=== PATIENT | female | born 1940 | race Caucasian/White ===

== ENCOUNTER 2017-12-23 16:00 | Inpatient (IN) | payer MEDICARE, OTHER ==
[~2017-12-23] VITALS: Ht 170.2 cm; Wt 66.0 kg
[~2017-12-23 16:00] MED LIST: diatr meglu/diatrizoate 30ml oral sol.-(3 dose) bottle PO SCH
[2017-12-23] MEDS ORDERED: normal saline 1000ML IV soln IVB ONE (16:35)
[2017-12-23 16:56] LABS: BASOPHILS % (AUTO) 0.3 % (0-1); EOSINOPHILS % (AUTO) 0.6 % (0-6); HEMATOCRIT 27.8 % (35.0-45.0); HEMOGLOBIN 9.6 g/dl (12.0-16.0); LYMPHOCYTES # (AUTO) 1.1 X10'3 (1.1-4.8); LYMPHOCYTES % (AUTO) 19.8 % (21-51); MEAN CORPUSCULAR HEMOGLOBIN 34.4 PG (27.0-31.0); MEAN CORPUSCULAR HGB CONC 34.4 % (33.0-36.5); MEAN CORPUSCULAR VOLUME 99.9 FL (78-98); MEAN PLATELET VOLUME 7.7 FL (7.4-10.4); MONOCYTES # (AUTO) 0.4 X10'3 (0-0.9); MONOCYTES % (AUTO) 6.6 % (2-12); NEUTROPHILS % (AUTO) 72.7 % (42-75); PLATELET COUNT 172 X10'3 (140-440); RED BLOOD COUNT 2.78 X10'6 (4.20-5.60); WHITE BLOOD COUNT 5.4 X10'3 (4.5-11.0)
[2017-12-23 17:13] LABS: PROTHROMBIN TIME 17.3 SECONDS (9.0-12.0)
[2017-12-23 17:14] LABS: INR 1.7 INR; PARTIAL THROMBOPLASTIN TIME 29 SECONDS (22-32)
[2017-12-23 17:15] LABS: ALANINE AMINOTRANSFERASE 40 U/L (12-78); ALBUMIN 2.2 G/DL (3.4-5.0); ALKALINE PHOSPHATASE 140 IU/L (46-116); ANION GAP 11 (8-16); CALCIUM 7.6 MG/DL (8.5-10.1); CHLORIDE 107 MMOL/L (99-107); CREATININE 0.93 MG/DL (0.40-0.90); SODIUM 144 MMOL/L (135-145); TOTAL CARBON DIOXIDE 26.2 MMOL/L (24-32); TROPONIN I 0.06 NG/ML (0.0-0.05); eGFR 58 ML/MIN
[2017-12-23 17:16] LABS: ANISOCYTOSIS 2+; PLATELET ESTIMATE NORMAL; TARGET CELLS 1+
[2017-12-23 17:20] LABS: ALBUMIN/GLOBULIN RATIO 0.7 (1.1-1.5); ASPARTATE AMINO TRANSFERASE 30 U/L (10-37); BILIRUBIN,TOTAL 0.9 MG/DL (0.1-1.0); BLOOD UREA NITROGEN 9 MG/DL (7-18); BUN/CREATININE RATIO 9.7 (6.6-38.0); GLUCOSE 86 MG/DL (70-104); TOTAL PROTEIN 5.5 G/DL (6.4-8.2)
[2017-12-23 17:30] LABS: ETHANOL < 0.010 GM/DL (0.0-0.010)
[2017-12-23 17:31] LABS: POTASSIUM 1.7 MMOL/L (3.5-5.1)
[2017-12-23] MEDS ORDERED: potassium Cl 20 mEq SR tablet PO ONE (17:35)
[2017-12-23] MEDS ORDERED: potassium Cl 40 mEq/NS 500ml IV ONE (17:35)
[2017-12-23] MEDS ORDERED: normal saline 1000ml 1,000 ML IV ONE (17:35)
[2017-12-23] MEDS ORDERED: Potassium Cl 40 MEQ in NS 500 ML IV ONE (17:40)
[2017-12-23] MEDS ORDERED: magnesium 1gm/100ml D5W IVPB 100 ML IV PRN (17:50)
[2017-12-23] MEDS ORDERED: mag hydrox/Alum hydrox/simeth 30ml oral suspension PO PRN (17:50)
[2017-12-23] MEDS ORDERED: acetaminophen 325mg tablet PO PRN (17:50)
[2017-12-23] MEDS ORDERED: potassium Cl 20 mEq SR tablet PO PRN (17:50)
[2017-12-23] MEDS ORDERED: potassium Cl 40MEQ/NS 500ml 500 ML IV PRN (17:50)
[2017-12-23] MEDS ORDERED: ondansetron/PF 4mg/2ml inj IV PRN (17:50)
[2017-12-23] MEDS ORDERED: magnesium 4gm in 100ml NS 100 ML IV PRN (17:50)
[2017-12-23] MEDS ORDERED: magnesium hydroxide 30ml (MOM) UD suspension PO PRN (17:50)
[2017-12-23 18:00] LABS: MAGNESIUM 1.6 MG/DL (1.5-2.4)
[2017-12-23 18:03] LABS: PHOSPHORUS 1.5 MG/DL (2.3-4.5)
[2017-12-23] MEDS ORDERED: nicotine 14mg patch - 24hr TD ONE (18:20)
[2017-12-23] MEDS ORDERED: diatr meglu/diatrizoate 30ml oral sol.-(3 dose) bottle PO ONE (18:30)
[2017-12-23] MEDS ORDERED: SIMV40TA4 PO (18:50)
[2017-12-23] MEDS ORDERED: PER5325T PO (18:50)
[2017-12-23] MEDS ORDERED: LISI-604 PO (18:50)
[2017-12-23] MEDS ORDERED: TRAZ-218 PO (18:50)
[2017-12-23] MEDS ORDERED: TIZA4TAB11 PO (18:50)
[2017-12-23] MEDS ORDERED: LORA10TA7 PO (18:50)
[2017-12-23] MEDS ORDERED: IBUP-1984 PO (18:50)
[2017-12-23] MEDS ORDERED: MULT-1172 (18:50)
[2017-12-23 19:32] LABS: CLARITY,URINE SLIGHTLY CLOUDY (Clear); COLOR,URINE YELLOW (Yellow); GLUCOSE, URINE NEGATIVE (Neg); KETONES,URINE NEGATIVE (Neg); LEUKOCYTE ESTERASE ,URINE SMALL (Neg); NITRITES, URINE NEGATIVE (Neg); OCCULT BLOOD,URINE LARGE (Neg); PROTEIN,URINE NEGATIVE (Neg); UROBILINOGEN,URINE 0.2 E.U/dL (0.2-1.0)
[2017-12-23 19:41] LABS: UA COLLECTION TYPE CLN CATCH MIDSTREAM
[2017-12-23 19:47] LABS: BACTERIA,URINE 1+ /HPF (Neg); RBC,URINE 20-50 /HPF (0-2); SQUAMOUS EPITHELIAL CELL,UR MODERATE /LPF (FEW); WBC,URINE 0-4 /HPF (0-4)
[2017-12-23 20:15] VITALS: BP 132/86
[2017-12-23 20:32] LABS: URINE AMPHETAMINE SCREEN NEGATIVE (Neg); URINE BARBITUATE SCREEN NEGATIVE (Neg); URINE BENZODIAZEPINES SCREEN NEGATIVE (Neg); URINE CANNABINOID SCREEN NEGATIVE (Neg); URINE COCAINE SCREEN NEGATIVE (Neg); URINE METHADONE SCREEN NEGATIVE (Neg); URINE OPIATE SCREEN NEGATIVE (Neg); URINE PHENCYCLIDINE SCREEN NEGATIVE (Neg)
[2017-12-23 22:00] VITALS: BP 132/68
[2017-12-23 22:51] LABS: MAGNESIUM 1.6 MG/DL (1.5-2.4)
[2017-12-23 22:53] LABS: POTASSIUM 2.5 MMOL/L (3.5-5.1)
[2017-12-23] MEDS: potassium Cl 40MEQ/NS 500ml 500 ML IV PRN (23:09)
[2017-12-23] MEDS: diatr meglu/diatrizoate 30ml oral sol.-(3 dose) bottle PO SCH (23:40)
[2017-12-24] MEDS: HYDROcodone/acetaminophen 5mg/325mg tablet PO PRN ×3 (00:51→11:30)
[2017-12-24 02:00] VITALS: BP 120/62
[2017-12-24] MEDS: potassium Cl 40MEQ/NS 500ml 500 ML IV PRN (04:02)
[2017-12-24 06:00] VITALS: BP 134/77
[2017-12-24 07:31] LABS: BASOPHILS % (AUTO) 0.3 % (0-1); EOSINOPHILS # (AUTO) 0.1 X10'3 (0-0.9); EOSINOPHILS % (AUTO) 1.6 % (0-6); HEMATOCRIT 31.5 % (35.0-45.0); HEMOGLOBIN 10.6 g/dl (12.0-16.0); LYMPHOCYTES # (AUTO) 1.2 X10'3 (1.1-4.8); LYMPHOCYTES % (AUTO) 15.5 % (21-51); MEAN CORPUSCULAR HEMOGLOBIN 34.5 PG (27.0-31.0); MEAN CORPUSCULAR HGB CONC 33.8 % (33.0-36.5); MEAN CORPUSCULAR VOLUME 102.2 FL (78-98); MONOCYTES # (AUTO) 0.4 X10'3 (0-0.9); MONOCYTES % (AUTO) 4.8 % (2-12); NEUTROPHILS # (AUTO) 5.9 X10'3 (1.8-7.7); NEUTROPHILS % (AUTO) 77.8 % (42-75); PLATELET COUNT 176 X10'3 (140-440); RED BLOOD COUNT 3.08 X10'6 (4.20-5.60); RED CELL DISTRIBUTION WIDTH 19.8 % (11.5-14.5); WHITE BLOOD COUNT 7.5 X10'3 (4.5-11.0)
[2017-12-24] MEDS: pantoprazole 40mg Tablet.DR PO SCH (07:33)
[2017-12-24] MEDS: enoxaparin 40mg/0.4ml syringe SUBCUT SCH (07:34)
[2017-12-24] MEDS: diatr meglu/diatrizoate 30ml oral sol.-(3 dose) bottle PO SCH ×2 (07:45→09:33)
[2017-12-24 07:55] LABS: ALANINE AMINOTRANSFERASE 45 U/L (12-78); ALBUMIN 2.4 G/DL (3.4-5.0); ALKALINE PHOSPHATASE 156 IU/L (46-116); ANION GAP 11 (8-16); CALCIUM 7.3 MG/DL (8.5-10.1); CHLORIDE 113 MMOL/L (99-107); CREATININE 0.86 MG/DL (0.40-0.90); MAGNESIUM 1.6 MG/DL (1.5-2.4); POTASSIUM 3.2 MMOL/L (3.5-5.1); SODIUM 146 MMOL/L (135-145); TOTAL CARBON DIOXIDE 22.3 MMOL/L (24-32); eGFR 64 ML/MIN
[2017-12-24 07:57] LABS: ALBUMIN/GLOBULIN RATIO 0.6 (1.1-1.5); ASPARTATE AMINO TRANSFERASE 37 U/L (10-37); BLOOD UREA NITROGEN 8 MG/DL (7-18); BUN/CREATININE RATIO 9.3 (6.6-38.0); GLUCOSE 64 MG/DL (70-104); TOTAL PROTEIN 6.2 G/DL (6.4-8.2)
[2017-12-24] MEDS: K and/or MAG REPLACEMENT MC SCH (08:00)
[2017-12-24] MEDS ORDERED: potassium phosphate inj 30 MMOL in normal saline 500ml IV soln 490 ML IV ONE (09:10)
[2017-12-24] MEDS ORDERED: iohexol 300mg/ml 100ml inj. ONE (09:28)
[2017-12-24 09:44] LABS: PLATELET ESTIMATE NORMAL
[2017-12-24 09:45] LABS: ANISOCYTOSIS 2+
[2017-12-24 09:46] LABS: TARGET CELLS 1+
[2017-12-24 11:00] VITALS: BP 138/72
[2017-12-24] MEDS ORDERED: oxyCODONE/APAP 5-325mg tablet PO PRN (13:10)
[2017-12-24] MEDS: Neutra Phos packet PO SCH ×2 (14:12→21:33)
[2017-12-24 15:00] VITALS: BP 130/80
[2017-12-24] MEDS: ibuprofen tablet 400 MG TABLET PO PRN (16:01)
[2017-12-24] MEDS: traZODone 50mg tablet PO SCH (17:51)
[2017-12-24 18:00] VITALS: BP 133/84
[2017-12-24] MEDS: NUT.TX.IMPAIRED DIGEST FXN (Ensure Clear) 237 ML PO SCH (18:00)
[2017-12-24] MEDS ORDERED: cyclobenzaprine 10mg tablet PO SCH (21:00)
[2017-12-24] MEDS: atorvastatin 20mg tablet PO SCH (21:32)
[2017-12-24 22:00] VITALS: BP 114/58
[2017-12-25 02:00] VITALS: BP 112/66
[2017-12-25 06:29] LABS: BASOPHILS % (AUTO) 0.3 % (0-1); EOSINOPHILS # (AUTO) 0.1 X10'3 (0-0.9); EOSINOPHILS % (AUTO) 1.9 % (0-6); HEMATOCRIT 27.1 % (35.0-45.0); HEMOGLOBIN 9.2 g/dl (12.0-16.0); LYMPHOCYTES # (AUTO) 1.7 X10'3 (1.1-4.8); LYMPHOCYTES % (AUTO) 32.2 % (21-51); MEAN CORPUSCULAR VOLUME 103.1 FL (78-98); MEAN PLATELET VOLUME 8.2 FL (7.4-10.4); MONOCYTES # (AUTO) 0.3 X10'3 (0-0.9); MONOCYTES % (AUTO) 5.1 % (2-12); NEUTROPHILS # (AUTO) 3.2 X10'3 (1.8-7.7); NEUTROPHILS % (AUTO) 60.5 % (42-75); PLATELET COUNT 146 X10'3 (140-440); RED BLOOD COUNT 2.63 X10'6 (4.20-5.60); RED CELL DISTRIBUTION WIDTH 20.3 % (11.5-14.5); WHITE BLOOD COUNT 5.2 X10'3 (4.5-11.0)
[2017-12-25 06:35] LABS: ALANINE AMINOTRANSFERASE 38 U/L (12-78); ALBUMIN 2.1 G/DL (3.4-5.0); ALKALINE PHOSPHATASE 137 IU/L (46-116); ANION GAP 10 (8-16); CHLORIDE 109 MMOL/L (99-107); CREATININE 0.89 MG/DL (0.40-0.90); MAGNESIUM 1.4 MG/DL (1.5-2.4); SODIUM 141 MMOL/L (135-145); TOTAL CARBON DIOXIDE 21.9 MMOL/L (24-32); eGFR 61 ML/MIN
[2017-12-25 07:00] VITALS: BP 103/63
[2017-12-25 07:17] LABS: ALBUMIN/GLOBULIN RATIO 0.6 (1.1-1.5); ASPARTATE AMINO TRANSFERASE 28 U/L (10-37); BILIRUBIN,TOTAL 0.6 MG/DL (0.1-1.0); BLOOD UREA NITROGEN 6 MG/DL (7-18); BUN/CREATININE RATIO 6.7 (6.6-38.0); GLUCOSE 93 MG/DL (70-104); PHOSPHORUS 1.7 MG/DL (2.3-4.5); TOTAL PROTEIN 5.4 G/DL (6.4-8.2)
[2017-12-25 07:20] LABS: POTASSIUM 2.5 MMOL/L (3.5-5.1)
[2017-12-25] MEDS: pantoprazole 40mg Tablet.DR PO SCH (07:49)
[2017-12-25] MEDS: Neutra Phos packet PO SCH ×3 (07:50→20:05)
[2017-12-25] MEDS: enoxaparin 40mg/0.4ml syringe SUBCUT SCH (07:51)
[2017-12-25] MEDS: potassium Cl 40MEQ/NS 500ml 500 ML IV PRN (07:52)
[2017-12-25] MEDS: lisinopril 10 MG tablet PO SCH (07:56)
[2017-12-25] MEDS: traZODone 50mg tablet PO SCH (08:00)
[2017-12-25] MEDS: NUT.TX.IMPAIRED DIGEST FXN (Ensure Clear) 237 ML PO SCH ×3 (08:00→18:34)
[2017-12-25] MEDS: K and/or MAG REPLACEMENT MC SCH (08:00)
[2017-12-25 11:00] VITALS: BP 117/70
[2017-12-25] MEDS: magnesium Cl slow-release 64mg tablet PO PRN (11:54)
[2017-12-25 15:00] VITALS: BP 116/68
[2017-12-25 18:00] VITALS: BP 126/77
[2017-12-25] MEDS: levoTHYROXINE 75mcg tablet PO SCH (18:28)
[2017-12-25] MEDS: ibuprofen tablet 400 MG TABLET PO PRN (18:28)
[2017-12-25] MEDS: NUTRITIONAL SUPPLEMENT 113 GM PO SCH (18:34)
[2017-12-25] MEDS: atorvastatin 20mg tablet PO SCH (20:05)
[2017-12-25] MEDS: lactulose 20gm/30ml cup PO SCH (20:07)
[2017-12-25] MEDS ORDERED: traZODone 50mg tablet PO PRN (21:00)
[2017-12-25 22:00] VITALS: BP 121/79
[2017-12-26 00:34] LABS: ALANINE AMINOTRANSFERASE 36 U/L (12-78); ALBUMIN 2.1 G/DL (3.4-5.0); ALKALINE PHOSPHATASE 134 IU/L (46-116); ANION GAP 11 (8-16); CHLORIDE 111 MMOL/L (99-107); CREATININE 0.83 MG/DL (0.40-0.90); MAGNESIUM 1.3 MG/DL (1.5-2.4); POTASSIUM 3.2 MMOL/L (3.5-5.1); SODIUM 143 MMOL/L (135-145); TOTAL CARBON DIOXIDE 21.2 MMOL/L (24-32); eGFR 66 ML/MIN
[2017-12-26 00:37] LABS: ALBUMIN/GLOBULIN RATIO 0.6 (1.1-1.5); BILIRUBIN,TOTAL 0.7 MG/DL (0.1-1.0); TOTAL PROTEIN 5.4 G/DL (6.4-8.2)
[2017-12-26 00:49] LABS: ASPARTATE AMINO TRANSFERASE 34 U/L (10-37)
[2017-12-26 00:50] LABS: BLOOD UREA NITROGEN 3 MG/DL (7-18); BUN/CREATININE RATIO 3.6 (6.6-38.0); GLUCOSE 90 MG/DL (70-104)
[2017-12-26 02:00] VITALS: BP 128/78
[2017-12-26] MEDS: potassium Cl 20 mEq SR tablet PO PRN ×2 (02:07→07:30)
[2017-12-26 06:12] LABS: BASOPHILS % (AUTO) 0.3 % (0-1); EOSINOPHILS # (AUTO) 0.1 X10'3 (0-0.9); EOSINOPHILS % (AUTO) 2.6 % (0-6); HEMATOCRIT 27.9 % (35.0-45.0); HEMOGLOBIN 9.5 g/dl (12.0-16.0); LYMPHOCYTES # (AUTO) 1.3 X10'3 (1.1-4.8); LYMPHOCYTES % (AUTO) 27.1 % (21-51); MEAN CORPUSCULAR HGB CONC 34.2 % (33.0-36.5); MEAN CORPUSCULAR VOLUME 102.2 FL (78-98); MEAN PLATELET VOLUME 8.1 FL (7.4-10.4); MONOCYTES # (AUTO) 0.3 X10'3 (0-0.9); MONOCYTES % (AUTO) 6.3 % (2-12); NEUTROPHILS % (AUTO) 63.7 % (42-75); PLATELET COUNT 140 X10'3 (140-440); RED BLOOD COUNT 2.73 X10'6 (4.20-5.60); RED CELL DISTRIBUTION WIDTH 20.1 % (11.5-14.5); WHITE BLOOD COUNT 4.7 X10'3 (4.5-11.0)
[2017-12-26 07:00] VITALS: BP 128/80
[2017-12-26] MEDS: lactulose 20gm/30ml cup PO SCH ×3 (07:29→21:32)
[2017-12-26] MEDS: pantoprazole 40mg Tablet.DR PO SCH (07:30)
[2017-12-26] MEDS: levoTHYROXINE 75mcg tablet PO SCH (07:30)
[2017-12-26] MEDS: lisinopril 10 MG tablet PO SCH (07:30)
[2017-12-26] MEDS: Neutra Phos packet PO SCH (07:30)
[2017-12-26] MEDS: magnesium Cl slow-release 64mg tablet PO PRN (07:30)
[2017-12-26] MEDS: enoxaparin 40mg/0.4ml syringe SUBCUT SCH (07:31)
[2017-12-26] MEDS: NUT.TX.IMPAIRED DIGEST FXN (Ensure Clear) 237 ML PO SCH ×3 (08:00→18:00)
[2017-12-26] MEDS: K and/or MAG REPLACEMENT MC SCH (08:00)
[2017-12-26] MEDS: NUTRITIONAL SUPPLEMENT 113 GM PO SCH ×3 (08:00→18:00)
[2017-12-26 08:10] LABS: ANISOCYTOSIS 2+; PLATELET ESTIMATE DECREASED
[2017-12-26 08:11] LABS: MICROCYTOSIS 1+; SPHEROCYTES 1+
[2017-12-26 11:00] VITALS: BP 133/77
[2017-12-26] MEDS: nicotine 14mg patch - 24hr TD SCH (12:59)
[2017-12-26] MEDS: ibuprofen tablet 400 MG TABLET PO PRN (12:59)
[2017-12-26] MEDS: CefTRIAXone/D5W-Rocephin 1gm 50 ML IV SCH (12:59)
[2017-12-26] MEDS: Potassium Cl inj 20 MEQ in normal saline 1000ml 990 ML IV SCH ×2 (13:00→21:30)
[2017-12-26 15:00] VITALS: BP 145/89
[2017-12-26] MEDS: magnesium oxide 400mg tablet PO SCH (15:59)
[2017-12-26 18:00] VITALS: BP 134/77
[2017-12-26] MEDS: atorvastatin 20mg tablet PO SCH (21:33)
[2017-12-26 23:00] VITALS: BP 125/78
[2017-12-27] VITALS (8 sets, daily range): BP systolic 91–137; BP diastolic 55–95
[2017-12-27] MEDS: magnesium oxide 400mg tablet PO SCH ×3 (00:41→17:59)
[2017-12-27] MEDS: Potassium Cl inj 20 MEQ in normal saline 1000ml 990 ML IV SCH ×2 (04:32→17:59)
[2017-12-27 05:04] LABS: BASOPHILS % (AUTO) 0.2 % (0-1); EOSINOPHILS # (AUTO) 0.2 X10'3 (0-0.9); HEMATOCRIT 32.7 % (35.0-45.0); HEMOGLOBIN 10.9 g/dl (12.0-16.0); MEAN CORPUSCULAR HEMOGLOBIN 34.4 PG (27.0-31.0); MEAN CORPUSCULAR HGB CONC 33.4 % (33.0-36.5); MEAN CORPUSCULAR VOLUME 102.9 FL (78-98); MEAN PLATELET VOLUME 8.2 FL (7.4-10.4); MONOCYTES # (AUTO) 0.3 X10'3 (0-0.9); MONOCYTES % (AUTO) 5.4 % (2-12); NEUTROPHILS # (AUTO) 4.2 X10'3 (1.8-7.7); NEUTROPHILS % (AUTO) 73.4 % (42-75); PLATELET COUNT 151 X10'3 (140-440); RED BLOOD COUNT 3.18 X10'6 (4.20-5.60); RED CELL DISTRIBUTION WIDTH 20.9 % (11.5-14.5); WHITE BLOOD COUNT 5.7 X10'3 (4.5-11.0)
[2017-12-27 05:31] LABS: ALANINE AMINOTRANSFERASE 50 U/L (12-78); ALBUMIN 2.1 G/DL (3.4-5.0); ALKALINE PHOSPHATASE 150 IU/L (46-116); ANION GAP 11 (8-16); CHLORIDE 113 MMOL/L (99-107); CREATININE 0.78 MG/DL (0.40-0.90); MAGNESIUM 1.4 MG/DL (1.5-2.4); SODIUM 145 MMOL/L (135-145); TOTAL CARBON DIOXIDE 21.1 MMOL/L (24-32); eGFR 71 ML/MIN
[2017-12-27 05:35] LABS: ALBUMIN/GLOBULIN RATIO 0.6 (1.1-1.5); ASPARTATE AMINO TRANSFERASE 54 U/L (10-37); BILIRUBIN,TOTAL 0.5 MG/DL (0.1-1.0); BLOOD UREA NITROGEN 3 MG/DL (7-18); BUN/CREATININE RATIO 3.8 (6.6-38.0); GLUCOSE 92 MG/DL (70-104); PHOSPHORUS 1.4 MG/DL (2.3-4.5); TOTAL PROTEIN 5.8 G/DL (6.4-8.2)
[2017-12-27 06:25] LABS: POTASSIUM 2.9 MMOL/L (3.5-5.1)
[2017-12-27 06:30] LABS: ANISOCYTOSIS 3+; PLATELET ESTIMATE NORMAL; SCHISTOCYTES FEW; TARGET CELLS FEW
[2017-12-27] MEDS: NUT.TX.IMPAIRED DIGEST FXN (Ensure Clear) 237 ML PO SCH ×3 (08:00→18:04)
[2017-12-27] MEDS: K and/or MAG REPLACEMENT MC SCH (08:00)
[2017-12-27] MEDS: NUTRITIONAL SUPPLEMENT 113 GM PO SCH ×3 (08:00→18:00)
[2017-12-27] MEDS: lactulose 20gm/30ml cup PO SCH ×4 (08:00→20:06)
[2017-12-27] MEDS: enoxaparin 40mg/0.4ml syringe SUBCUT SCH (08:27)
[2017-12-27] MEDS: lisinopril 10 MG tablet PO SCH (08:28)
[2017-12-27] MEDS: CefTRIAXone/D5W-Rocephin 1gm 50 ML IV SCH (08:28)
[2017-12-27] MEDS: pantoprazole 40mg Tablet.DR PO SCH (08:28)
[2017-12-27] MEDS: levoTHYROXINE 75mcg tablet PO SCH (08:32)
[2017-12-27] MEDS ORDERED: magnesium Cl slow-release 64mg tablet PO PRN (11:15)
[2017-12-27] MEDS ORDERED: potassium Cl 20 mEq SR tablet PO PRN (11:15)
[2017-12-27] MEDS: potassium Cl 20 mEq SR tablet PO PRN ×2 (11:34→20:01)
[2017-12-27] MEDS: nicotine 14mg patch - 24hr TD SCH (14:28)
[2017-12-27] MEDS: Neutra Phos packet PO SCH ×2 (14:30→20:05)
[2017-12-27] MEDS: aspirin 325mg tablet PO SCH (18:04)
[2017-12-27] MEDS: atorvastatin 20mg tablet PO SCH (20:02)
[2017-12-27] MEDS: lactobacillus rhamnosus 10,000 MMU CELLS/CAPSULE PO SCH (20:02)
[2017-12-28] MEDS: potassium Cl 20 mEq SR tablet PO PRN (00:53)
[2017-12-28] MEDS: magnesium oxide 400mg tablet PO SCH ×3 (00:53→15:17)
[2017-12-28 03:00] VITALS: BP 126/76
[2017-12-28] MEDS: Potassium Cl inj 20 MEQ in normal saline 1000ml 990 ML IV SCH ×2 (03:30→05:57)
[2017-12-28 06:00] VITALS: BP 136/79
[2017-12-28] MEDS: levoTHYROXINE 75mcg tablet PO SCH (07:41)
[2017-12-28] MEDS: lactobacillus rhamnosus 10,000 MMU CELLS/CAPSULE PO SCH ×2 (07:42→20:06)
[2017-12-28] MEDS: pantoprazole 40mg Tablet.DR PO SCH (07:42)
[2017-12-28] MEDS: ibuprofen tablet 400 MG TABLET PO PRN (07:42)
[2017-12-28] MEDS: aspirin 325mg tablet PO SCH (07:42)
[2017-12-28] MEDS: Neutra Phos packet PO SCH ×3 (07:42→20:22)
[2017-12-28] MEDS: enoxaparin 40mg/0.4ml syringe SUBCUT SCH (07:45)
[2017-12-28] MEDS: nicotine 14mg patch - 24hr TD SCH (07:45)
[2017-12-28] MEDS: CefTRIAXone/D5W-Rocephin 1gm 50 ML IV SCH (07:45)
[2017-12-28] MEDS: lactulose 20gm/30ml cup PO SCH ×3 (07:50→20:23)
[2017-12-28] MEDS: lisinopril 10 MG tablet PO SCH (07:50)
[2017-12-28] MEDS: NUT.TX.IMPAIRED DIGEST FXN (Ensure Clear) 237 ML PO SCH ×3 (08:00→18:00)
[2017-12-28] MEDS: NUTRITIONAL SUPPLEMENT 113 GM PO SCH ×3 (08:00→18:00)
[2017-12-28] MEDS: K and/or MAG REPLACEMENT MC SCH (08:00)
[2017-12-28 11:00] VITALS: BP 138/75
[2017-12-28 14:51] LABS: BASOPHILS % (AUTO) 0.2 % (0-1); EOSINOPHILS # (AUTO) 0.1 X10'3 (0-0.9); EOSINOPHILS % (AUTO) 1.7 % (0-6); HEMATOCRIT 29.2 % (35.0-45.0); HEMOGLOBIN 10.1 g/dl (12.0-16.0); LYMPHOCYTES # (AUTO) 0.8 X10'3 (1.1-4.8); MEAN CORPUSCULAR HEMOGLOBIN 36.2 PG (27.0-31.0); MEAN CORPUSCULAR HGB CONC 34.7 % (33.0-36.5); MEAN CORPUSCULAR VOLUME 104.3 FL (78-98); MEAN PLATELET VOLUME 8.3 FL (7.4-10.4); MONOCYTES # (AUTO) 0.4 X10'3 (0-0.9); MONOCYTES % (AUTO) 7.5 % (2-12); NEUTROPHILS # (AUTO) 4.7 X10'3 (1.8-7.7); NEUTROPHILS % (AUTO) 77.6 % (42-75); PLATELET COUNT 135 X10'3 (140-440); RED CELL DISTRIBUTION WIDTH 20.1 % (11.5-14.5)
[2017-12-28 15:00] VITALS: BP 125/63
[2017-12-28 15:02] LABS: ANION GAP 8 (8-16); CHLORIDE 116 MMOL/L (99-107); CREATININE 0.74 MG/DL (0.40-0.90); HDL CHOLESTEROL 34 MG/DL (35-60); LDL CHOLESTEROL 43 MG/DL (50-100); MAGNESIUM 1.5 MG/DL (1.5-2.4); SODIUM 144 MMOL/L (135-145); TOTAL CARBON DIOXIDE 20.2 MMOL/L (24-32); TRIGLYCERIDES 167 MG/DL (20-135); eGFR 76 ML/MIN
[2017-12-28 15:04] LABS: ALANINE AMINOTRANSFERASE 44 U/L (12-78); ALKALINE PHOSPHATASE 135 IU/L (46-116); ASPARTATE AMINO TRANSFERASE 49 U/L (10-37); BILIRUBIN,TOTAL 0.4 MG/DL (0.1-1.0); CHOL/HDL RATIO 2.9 (0.00-4.99); CHOLESTEROL 98 MG/DL (0-200)
[2017-12-28 15:17] LABS: ALBUMIN 1.9 G/DL (3.4-5.0); ALBUMIN/GLOBULIN RATIO 0.5 (1.1-1.5); BLOOD UREA NITROGEN 1 MG/DL (7-18); BUN/CREATININE RATIO 1.4 (6.6-38.0); CALCIUM 8.1 MG/DL (8.5-10.1); GLUCOSE 92 MG/DL (70-104); PHOSPHORUS 1.4 MG/DL (2.3-4.5); TOTAL PROTEIN 5.7 G/DL (6.4-8.2)
[2017-12-28] MEDS: normal saline 1000ml 1,000 ML IV SCH (15:53)
[2017-12-28 19:00] VITALS: BP 125/78
[2017-12-28] MEDS: megestrol acetate 400mg/10ml UD oral suspension PO SCH (20:06)
[2017-12-28] MEDS: atorvastatin 20mg tablet PO SCH (20:23)
[2017-12-28 23:00] VITALS: BP 121/78
[2017-12-29] MEDS: HYDROcodone/acetaminophen 5mg/325mg tablet PO PRN ×3 (00:03→13:35)
[2017-12-29] MEDS: magnesium oxide 400mg tablet PO SCH ×2 (00:05→08:07)
[2017-12-29 03:00] VITALS: BP 123/73
[2017-12-29 06:00] VITALS: BP 130/84
[2017-12-29 06:53] VITALS: BP 126/78
[2017-12-29] MEDS ORDERED: multivitamins, therapeutics tablet PO SCH (08:00)
[2017-12-29] MEDS: K and/or MAG REPLACEMENT MC SCH (08:00)
[2017-12-29] MEDS: levoTHYROXINE 75mcg tablet PO SCH (08:05)
[2017-12-29] MEDS: enoxaparin 40mg/0.4ml syringe SUBCUT SCH (08:05)
[2017-12-29] MEDS: lactobacillus rhamnosus 10,000 MMU CELLS/CAPSULE PO SCH (08:05)
[2017-12-29] MEDS: aspirin 325mg tablet PO SCH (08:05)
[2017-12-29] MEDS: lisinopril 10 MG tablet PO SCH (08:07)
[2017-12-29] MEDS: pantoprazole 40mg Tablet.DR PO SCH (08:07)
[2017-12-29] MEDS: Neutra Phos packet PO SCH ×2 (08:07→13:34)
[2017-12-29] MEDS: megestrol acetate 400mg/10ml UD oral suspension PO SCH (08:08)
[2017-12-29] MEDS: lactulose 20gm/30ml cup PO SCH ×2 (08:08→13:34)
[2017-12-29] MEDS: nicotine 14mg patch - 24hr TD SCH (08:08)
[2017-12-29] MEDS: CefTRIAXone/D5W-Rocephin 1gm 50 ML IV SCH (08:09)
[2017-12-29] MEDS: NUTRITIONAL SUPPLEMENT 113 GM PO SCH ×2 (08:15→13:37)
[2017-12-29] MEDS: NUT.TX.IMPAIRED DIGEST FXN (Ensure Clear) 237 ML PO SCH ×2 (08:15→13:37)
[2017-12-29] MEDS: normal saline 1000ml 1,000 ML IV SCH (08:23)
[2017-12-29 11:00] VITALS: BP 139/82
== END 2017-12-29 14:47 | DRG 682 ==
LOC: ER 16:01 → ED HOLD 17:46 → EDBEDREQ 19:10 → PCU 3S 20:17
PROVIDERS: ADMIT Internal Medicine; ATTEND Family Medicine
PROC: BW251ZZ Computerized Tomography (CT Scan) of Chest, Abdomen and Pelvis using Low Osmolar Contrast (ICD-10-PCS; principal; 2017-12-24)
DX: N17.9 Acute kidney failure, unspecified (principal); E43 Unspecified severe protein-calorie malnutrition; G93.41 Metabolic encephalopathy; N39.0 Urinary tract infection, site not specified; E87.1 Hypo-osmolality and hyponatremia; K72.90 Hepatic failure, unspecified without coma; E87.6 Hypokalemia; M81.0 Age-related osteoporosis without current pathological fracture; E83.39 Other disorders of phosphorus metabolism; B96.20 Unspecified Escherichia coli [E. coli] as the cause of diseases classified elsewhere; E03.9 Hypothyroidism, unspecified; E78.00 Pure hypercholesterolemia, unspecified; E78.5 Hyperlipidemia, unspecified; E83.42 Hypomagnesemia; E86.0 Dehydration; F17.210 Nicotine dependence, cigarettes, uncomplicated; G89.4 Chronic pain syndrome; I10 Essential (primary) hypertension; K57.30 Diverticulosis of large intestine without perforation or abscess without bleeding; N28.1 Cyst of kidney, acquired; I71.4 Abdominal aortic aneurysm, without rupture; J32.9 Chronic sinusitis, unspecified; J43.9 Emphysema, unspecified; M19.90 Unspecified osteoarthritis, unspecified site; K76.0 Fatty (change of) liver, not elsewhere classified; M54.5 Low back pain; R26.2 Difficulty in walking, not elsewhere classified; Z90.49 Acquired absence of other specified parts of digestive tract; Z91.19 Patient's noncompliance with other medical treatment and regimen; Z88.2 Allergy status to sulfonamides; Z88.7 Allergy status to serum and vaccine; Z79.899 Other long term (current) drug therapy; Z79.890 Hormone replacement therapy; Z79.891 Long term (current) use of opiate analgesic; Z79.82 Long term (current) use of aspirin; Z68.22 Body mass index [BMI] 22.0-22.9, adult
CPT/HCPCS: 36415; 70450; 71045; 71260; 72110; 74177; 80053; 80061; 80305; 80320; 81001; 82140; 83735; 84100; 84132; 84443; 84484; 85025; 85610; 85730; 87070; 87077; 87088; 87186; 93005; 93880; 96360; 97116; 97161; 97535; 99285; G0378; J0696; J1650; J3480; J7030; Q9963; Q9967